=== PATIENT | female | born 1945 | race Hispanic/Latino ===

== ENCOUNTER 2024-02-24 15:52 | Emergency (ER) | payer OTHER ==
--- OUTSIDE RECORDS SUMMARY | 2024-02-24 15:55 | XMS REPORT | Clinical Summary ---
Author Name Unknown Organization [facility] Address [address] [place] [address] Care Team Providers Care Produce Wrapper Name Role Phone Nish Pressley MD Primary Care Provider Unavaila ble Nicole Dixon MD Unavailable [phone] Jarret Curry MD Unavailable Nish Pressley MD Unavailable Unavailable WeathersVarun MD Unavailable [phone] Julianne Gaxiola MD Unavailable [phone] Brain Babb MD Unavailable [phone] Rose Mary Adam NP Unavailable Allergies Active Allergy Reactions Criticality Noted Date Comments Adhesive Rash High 03/15/2016 Medications Medication Sig Dispensed Refills Start Date End Date Status nebivolol (BYSTOLIC) 20 mg tablet Take 20 mg by mouth daily. 0 Active prochlorperazine (COMPAZINE) 10 mg tablet Take 10 mg by mouth. 0 Active rosuvastatin (CRESTOR) 10 mg tablet Take 10 mg by mouth. 0 Active docusate sodium (COLACE) 100 mg capsule Take 100 mg by mouth. 0 Active losartan (COZAAR) 100 mg tablet Take by mouth. 0 Active insulin detemir (LEVEMIR) 100 units/mL injection Inject under the skin. 0 Active esomeprazole (NexIUM) 40 MG capsule Take 40 mg by mouth. 0 Active SUMAtriptan (IMITREX) 25 mg tablet Take 25 mg by mouth. 0 Active celecoxib (CeleBREX) 200 mg capsule Take 200 mg by mouth. 0 Active ibuprofen (ADVIL,MOTRIN) 200 mg tablet Take 200 mg by mouth every 8 (eight) hours as needed. 0 Active gabapentin (NEURONTIN) 100 mg capsule Take 1 capsule by mouth every evening. 3 08/08/2017 Active metFORMIN (GLUCOPHAGE-XR) 500 mg 24 hr tablet Take 1 tablet by mouth daily. 3 08/08/2017 Active Active Problems Problem Noted Date Diagnosed Date Malignant neoplasm of left fallopian tube 2015 Last Assessment & Plan: - CA 125 normal today. See follow up plan above. Endometrial carcinoma 02/23/2016 Last Assessment & Plan: - Normal exam today. Will continue surveillance. - Return to clinic in 6 months. Surgical History Surgery Date Site/Laterality Comments SECTION, LOW TRANSVERSE MASTECTOMY 06/14/2011 - 07/13/2011 Bilateral HYSTEROSCOPY 12/03/2013 ROBOTIC LAPAROSCOPIC HYSTERECTOMY 01/20/2014 Medical History Medical History Date Comments Hypertension Diabetes mellitus Dyslipidemia Gastroesophageal reflux disease Personal history of breast cancer Family History Medical History Relation Name Comments Uterine cancer Maternal Aunt 1 Liver cancer Maternal Aunt 2 Uterine cancer Mother Relation Name Status Comments Maternal Aunt 1 Maternal Aunt 2 Mother Social History Tobacco Use Types Packs/Day Years Used Date Smoking Tobacco: Never Assessed Sex and Gender Information Value Date Recorded Sex Assigned at Not on file Gender Identity Not on file Sexual Orientation Not on file Obstetrics History Para Term AB IAB SAB Ectopic Multiple Livin g Live Births 10 9 Date Outcome GA Total Labor Labor/2nd/3rd Weight Sex Delivery Anes PTL Allyson A1 A5 Name Cl in Para Para Para Para Para Para Para Para Para Comments 10, para 9, AB1. Men arche at age 13. Menopause at 55. She has not had any abnormal Pap smears. Plan of Treatment Health Maintenance Due Date Last Done Comments COVID-19 Vaccine (#1) 04/05/1946 Influenza Vaccine 06/14/2024 Care Teams Produce Wrapper Relationship Specialty Start Date End Date Nish Pressley MD PCP - General 12/14/15 Nicole Dixon MD PCP - External Follow Up A 12/16/13 Jarret Curry MD [address] [place] [phone] Physician 12/21/15 Nish Pressley MD Physician 12/21/15 Varun Spain MD [address] [place] [id number] Physician 12/21/15 Julianne Gaxiola MD [address] [place] [address] [phone] Physician 12/21/15 Brain Babb MD [address] [place] [address] [phone] Physician 12/21/15 Rose Mary Adam NP [address] [place] [address] [phone] Nurse Practitioner 12/21/15
[2024-02-24] MEDS ORDERED: ACETAMINOPHEN 500 MG TAB ONE (16:18)
[2024-02-24] MEDS ORDERED: CYCLOBENZAPRINE 10 MG TAB ONE (16:18)
--- NOTE | 2024-02-24 17:33 | RAD REPORT ---
EXAM DESCRIPTION: RAD - Shoulder Right 2 View - 02/24/2024 4:45 pm CLINICAL HISTORY: PAIN COMPARISON: No comparisons FINDINGS/IMPRESSION: No acute fracture. No malalignment. Right AC joint degenerative changes. Mild r ight glenohumeral joint degenerative changes.
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
[2024-02-24 18:58] VITALS: TEMP 98
[2024-02-24 19:21] VITALS: BP 135/72; O2SAT 99
== END 2024-02-24 18:26 | disposition home or self-care (01) ==
LOC: ER 15:52
DX: S13.4XXA Sprain of ligaments of cervical spine, initial encounter (principal); V49.40XA Driver injured in collision with unspecified motor vehicles in traffic accident, initial encounter
CPT/HCPCS: 70450; 72125; 99284